=== PATIENT | female | born 1970 | race Caucasian/White ===

== ENCOUNTER 2019-05-29 08:07 | Inpatient (IN) | payer BC ==
--- NOTE | 2019-05-28 14:57 | HP ---
Admitting History and Physical - Primary Care Physician PCP: Star Lentz - Admission Chief Complaint: BRCA 1 positive History of Present Illness: 48 year old postmenapausal female BRCA 1positve with strong family H/O breast and ovarian cancer. Breast MRI 02/2019 showed 7 mm finding abbutting the left breast upper inner quadrant. Diagnostic mammogram and US showed no corrresponding findings. Due to the location over the implant the MRI core bx could not be performed and the density was felt to most likely be benign and a 6 month follow up advised. History Source: Patient Limitations to Obtaining History: No Limitations - Past Medical History Gastrointestinal: Yes: GERD ...LMP Comment: HYSTERECTOMY 02/19/19 Additional Past Medical History: toxic shock syndome 1985 - Past Surgical History Past Surgical History: Yes: Hysterectomy (Proph TA), Tonsillectomy (1994) Additional Past Surgical History: Bilateral saline implants 10 yrs ago - Smoking History Smoking history: Former smoker Have you smoked in the past 12 months: No If you are a former smoker, when did you quit?: 1994 - Alcohol/Substance Use Hx Alcohol Use: Yes (SOCIALLY 3-4 WKLY) Home Medications - Allergies Allergies/Adverse Reactions: Allergies Allergy/AdvReac Type Severity Reaction Status Date / Time codeine Allergy Intermediate Itching Verified 05/23/19 10:04 Penicillins Allergy Intermediate Rash Verified 05/23/19 10:04 - Home Medications Home Medications: Ambulatory Orders Bupropion HCl [Wellbutrin Xl -] 150 mg PO BID 05/23/19 Citalopram Hydrobromide [Citalopram HBr] 20 mg PO DAILY 05/23/19 LORazepam [Lorazepam] 0.5 mg PO Q6H PRN 05/23/19 Omeprazole 20 mg PO DAILY 05/23/19 traZODone HCL [Trazodone HCl] 50 mg PO HS 05/23/19 Family Medical History Family Hx Cancer: Father (Lung ca), Sister (BRCA=) Other Family History: pat uncle lymphoma//pat cousin ovarian ca BRCA1+. pat cousin small cell lung ca. mat aunt breast ca Physical Examination Constitutional: Yes: Well Nourished Breast(s): Yes: Other (C cup breast with obvious bilateral subpectoral saline implants placed through imframmary fold.no suspicious densities or adenopathy bilaterally) Problem List - Problems (1) BRCA gene mutation positive in female Code(s): Z15.01 - GENETIC SUSCEPTIBILITY TO MALIGNANT NEOPLASM OF BREAST; Z15.02 - GENETIC SUSCEPTIBILITY TO MALIGNANT NEOPLASM OF OVARY; Z15.09 - GENETIC SUSCEPTIBILITY TO OTHER MALIGNANT NEOPLASM Assessment/Plan Bilateral total mastectomies retroareolar biopsies reconstruction
[2019-05-29] MEDS ORDERED: BUPIVACAINE LIPOSOME/PF (EXPAREL) 266 MG/20 ML VIAL ONE (08:51)
[2019-05-29] MEDS ORDERED: SODIUM CHLORIDE 0.9% P/F 10 ML VIAL IJ ONE (08:51)
[2019-05-29] MEDS ORDERED: MIDAZOLAM HCL 2 MG/2 ML SINGLE DOSE VIAL ONE (09:39)
[2019-05-29] MEDS ORDERED: SCOPOLAMINE HYDROBROMIDE 1 PATCH PATCH.TD72 ONE (09:40)
[2019-05-29] MEDS ORDERED: ONDANSETRON 4 MG/2 ML VIAL IVPUSH PRN (09:42)
[2019-05-29] MEDS ORDERED: ACETAMINOPHEN 325 MG TABLET (FP) PO PRN (09:42)
[2019-05-29] MEDS ORDERED: diazePAM 5 MG TABLET PO PRN ×3 (09:45→14:14)
[2019-05-29] MEDS ORDERED: ROCURONIUM BROMIDE 50 MG/5 ML SYRINGE ONE ×2 (09:53→10:37)
[2019-05-29] MEDS ORDERED: VANCOMYCIN 1,000 MG VIAL (RESTRICTED TO ID ONLY) ONE (10:00)
[2019-05-29] MEDS ORDERED: PATIENT'S OWN MEDICATION (NON-FORMULARY) (Omeprazole [Omeprazole] 20 MG) PO SCH (10:00)
[2019-05-29] MEDS ORDERED: ceFAZolin SODIUM 1 GM VIAL ONE (10:01)
[2019-05-29] MEDS ORDERED: PROPOFOL 20 ML ONE ×2 (10:12)
[2019-05-29] MEDS ORDERED: DEXAMETHASONE SOD PHOSPHATE 4 MG/1 ML VIAL ONE (10:18)
[2019-05-29] MEDS ORDERED: HYDROmorphone HCL/PF 1 MG/ML AMP ONE (10:33)
[2019-05-29] MEDS ORDERED: fentaNYL CITRATE 250 MCG/5 ML VIAL ONE (10:38)
[2019-05-29] MEDS ORDERED: NEOSTIGMINE METHYLSULFATE 0.5 MG/ML - 10 ML MDV ONE (12:36)
[2019-05-29] MEDS ORDERED: GLYCOPYRROLATE 0.2 MG/1 ML VIAL ONE (12:36)
[2019-05-29] MEDS ORDERED: ONDANSETRON 4 MG/2 ML VIAL ONE ×2 (12:36→13:10)
--- NOTE | 2019-05-29 13:41 | SURG ---
Surgery Director Of Early Childhood Note Director Of Early Childhood: Minerva Brewer PA-C Date of Service: 05/29/19 Diagnosis: chest wall deformity s/p bilateral prophylaxtic mastectomy Procedure: Bilateral breast reconstruction with implants and dermal matrix I was present for the entirety of the operative procedure. For further detail, please refer to operative report. Visit type - Case Type Case Type: Scheduled - Emergency Emergency Visit: No - New patient This patient is new to me today: Yes Date on this admission: 05/29/19
--- NOTE | 2019-05-29 13:45 | OP ---
Operative Note - Note: Operative Date: 05/29/19 Pre-Operative Diagnosis: chest wall deformity s/p bilateral prophylactic mastetcomies Operation: bilateral breast reconstruction with implants and dermal matrix Post-Operative Diagnosis: Same as Pre-op Surgeon: Carlos Rasmussen Library Media Specialist: Minerva Brewer Anesthesiologist/ASSISTANT COMMUNITY MANAGER: Cristopher Saeed Anesthesia: General, Local Estimated Blood Loss (mls): 100 Fluid Volume Replaced (mls): 900 Operative Report Dictated: Yes
[2019-05-29] MEDS ORDERED: ACETAMINOPHEN 325 MG TABLET (FP) ONE (14:23)
[2019-05-29] MEDS ORDERED: oxyCODONE HCL 5 MG TABLET ONE (14:23)
[2019-05-29] MEDS: oxyCODONE HCL 5 MG TABLET PO PRN ×4 (14:28→21:24)
[2019-05-29] MEDS: DEXTROSE 5%-0.45% SALINE 1,000 ML IV SCH (15:20)
[2019-05-29] MEDS: CEFAZOLIN 1 GM/D5W 1 GM/50 ML BAG IVPB SCH ×2 (15:20→21:25)
[2019-05-29] MEDS: LACTATED RINGERS SOLUTION 1,000 ML IV SCH (15:21)
[2019-05-29] MEDS: diazePAM 5 MG TABLET PO PRN (16:29)
--- NOTE | 2019-05-29 17:28 | OP ---
DATE OF OPERATION: 05/29/2019 SURGEON: Licha Rasmussen MD. COMPLIANCE QUALITY PERFORMANCE ANALYST: ROSALINA Fan. This is a combined dictation with Dr. Licha Lentz for bilateral mastectomy with implant and acellular dermal matrix reconstruction. The patient had bilateral reconstruction which will be dictated under a separate cover by Dr. Lentz, and the reconstructive procedure as above. PREOPERATIVE DIAGNOSES: 1. Bilateral acquired chest wall deformity status post bilateral mastectomy. 2. Personal history of genetic carcinoma. 3. Absent bilateral breasts. POSTOPERATIVE DIAGNOSES: 1. Bilateral acquired chest wall deformity status post bilateral mastectomy. 2. Personal history of genetic carcinoma. 3. Absent bilateral breasts. OPERATIVE PROCEDURE: 1. Right breast immediate reconstruction utilizing immediate insertion of silicone breast implant, AlloDerm reconstruction and mesh placement. 2. Left breast immediate reconstruction utilizing immediate insertion of silicone breast implant, AlloDerm reconstruction and mesh placement. 3. Intravenous injection of indocyanine green dye and intraoperative diagnostic evaluation of noncoronary intraoperative fluorescein vascular angiography x2 as well as interpretation of angiogram intraoperatively. The right breast tissue removed was 354 g of tissue. Left breast tissue removed was 392 g of tissue. The patient had Sientra smooth round high profile style 107, 440-mL implants placed bilaterally, and she had Cortiva large sheaths of AlloDerm placed bilaterally for the reconstruction. She also had the SPY intraoperative angiogram, which showed good blood flow to the nipple areolar complexes. OPERATIVE INDICATION: Patient is a 48-year-old female who was brought to the operating room by Dr. Licha Lentz for bilateral mastectomy for significant genetic history of breast carcinoma. The patient elected to undergo bilateral mastectomy with the above reconstructive procedure in a prepectoral position. The risks and benefits of surgical versus nonsurgical alternatives as well as material complications were described to the patient on multiple occasions preoperatively. She was marked in the standing position preoperatively in the holding area and all questions were asked and answered. OPERATIVE PROCEDURE IN DETAIL: The patient was taken to the operating room by Dr. Lentz where she was placed supine on the operating room table. Both arms were extended and padded. Venodyne boots were placed and all areas were protected and padded. Dr. Lentz will dictate his portion of the operation under separate cover. At this point Dr. Lentz performed bilateral mastectomy with an inframammary incision on both right and left breasts, which will be dictated separately. Upon completion of the mastectomies the wounds were copiously irrigated and hemostasis was meticulously obtained throughout the pocket and both chest gill. On the back table as the mastectomies were being performed I created reconstructive procedures by utilizing a full coverage reconstructive implant. A Sientra smooth round high profile style 107, 440-mL implant was used for the reconstruction. ProGrip mesh was placed in a circular fashion cutting out the mesh slightly larger than the backside of the implant. The gripping portion of the mesh was placed away from the implant in order to adhere to the pectoralis muscle. Cortiva large sheaths of AlloDerm were selected to cover the anterior surface of the entire implant and then was sutured down to the underlying mesh over the implant and suturing it on the backside. Multiple 2-0 Vicryl sutures were placed around the circumference of the implant creating an entire enclosure for the new implant device. Triple-antibiotic solution and Betadine were used to cover this device and the AlloDerm was soaked in triple-antibiotic solution x3. Both devices were created on the back table and ready for reconstruction. The exact same procedure was carried out symmetrically on the opposite left side in order to create the same device with the same size Sientra 107, 505 mL high-profile implant. Once the mastectomies were completed, the left breast was attended to first. The device was transferred to the left chest wall and the rim which extended beyond the implant itself was then attached to the chest wall using 0 V-Loc suture in a running fashion from the medial to the lateral side to tack the mesh down to the pectoralis muscle at the inframammary fold and laterally and medially in order to prevent motion of the device. Good shape and contour were seen in the shape of the breast at this point. Skin flaps showed viability. The Spy intraoperative angiogram was performed at this point by injecting 4 mL of indocyanine green dye into the intravascular system and then an intraoperative angiogram was used to show adequate blood flow to the skin and nipple-areolar complex on both chest gill. This was repeated before placement of the implant and then after the implant was placed. Both showed good blood flow. The Spy imaging system was brought into the field. The skin flowed to the right and left breasts and the nipple-areolar complex, and the entire skin flaps were evaluated and seen to be viable with good blood flow. The patient had the 2nd implant placed into the right chest wall in the exact same fashion, suturing a 0 V-Loc suture in running fashion from medial to lateral, attaching the posterior aspect of the mesh down to the chest wall. Once the implants were verified in good position and shape and contour were seen the skin flaps were draped over the implant and down into their new anatomic position. The skin edges were trimmed. A 15 Ramon drain was threaded through a separate stab wound around the entire circumference of the implant itself and sutured into position. Again, copious irrigation and hemostasis were obtained and then attention was turned to the closure. Using 3-0 PDS suture on the deep dermis and tissue the deep layer was repaired with interrupted sutures and then a 4-0 Biosyn suture was used in a subcuticular fashion to repair the skin. Biopatch and Dermabond with Steri-Strips were placed over the drain and suture line. A compression dressing with fluff dressings, ABD gauze and a Surgi-Bra were placed. She was then awakened, extubated and transferred to the recovery room in satisfactory condition and showed excellent contour and excellent result at this point. LICHA RASMUSSEN M.D. [id number]
[2019-05-29] MEDS: diphenhydrAMINE HCL 25 MG CAPSULE (FP) PO PRN (21:24)
[2019-05-29] MEDS ORDERED: traZODone HCL 50 MG TABLET (FP) PO SCH (22:00)
[2019-05-29] MEDS: traZODone HCL 50 MG TABLET (FP) PO SCH (22:33)
[2019-05-29] MEDS: ACETAMINOPHEN 325 MG TABLET (FP) PO PRN (22:33)
--- NOTE | 2019-05-29 23:01 | OP ---
DATE OF OPERATION: 05/29/2019 PREOPERATIVE DIAGNOSIS: Genetic susceptibility for breast cancer, BRCA1 positive. POSTOPERATIVE DIAGNOSIS: Genetic susceptibility for breast cancer, BRCA1 positive. PROCEDURE: Bilateral total nipple-sparing mastectomies from an inframammary approach with removal of previous saline augmentation implants and now direct implant reconstruction with acellular dermal matrix. PRIMARY SURGEON: Licha Garcia MD. RIVET SPINNER: DANIELLE Moya. Primary surgeon for the bilateral direct implant reconstruction is Licha Rasmussen MD. COMPLICATIONS: There were no complications. DESCRIPTION OF PROCEDURE: Briefly, the patient is a 48-year-old G3, P2 postmenopausal white female of [place], [place], [place] descent. She has a strong family history with her paternal cousin, from ovarian cancer at age 35 and tested BRCA1 positive. Her father from lung cancer and maternal aunt had breast cancer in her 60s. The patient had a prophylactic PATRICIA/BSO in February 2019 due to the gene positive mutation. Both the patient and her sister tested BRCA1 positive. She has a history of undergoing bilateral subpectoral saline augmentation implant surgery in 2010. The patient recently had an MRI showing a benign-appearing finding over the upper inner aspect of the left breast, which was felt too difficult to biopsy, and close followup was recommended. She decided to undergo bilateral mastectomies for risk reduction. The patient was seen in consultation prior to the surgery, understood our technique and procedure as well as all risks, complications to the procedure. She understood that we do retroareolar biopsies at the time of surgeries and if these showed cancer, we would remove the nipples. Otherwise, we would save the nipples, and there is some theoretical risk of leaving some tissue in that region. She understood the lack of any evidence showing sentinel lymph node biopsies. She was seen by Dr. Rasmussen, our plastic surgeon, and decided undergoing bilateral silicone direct implant reconstructions with acellular dermal matrix. The patient is brought in for the procedure on May 29, 2019. In the holding area, site verification was made and informed consent as obtained. She was marked preoperatively by the plastic surgeon. She was brought to the operating room and laid on the OR table in supine position. Venodynes were placed on the lower extremities prior to induction. She received 2 g Ancef prior to incision. Both breasts were sterilely prepped and draped in the usual fashion, and she was given general endotracheal anesthesia. Bilateral inframammary incisions were marked out symmetric bilaterally about 9 cm in length. The left mastectomy was first performed. Timeout was performed prior to incision. Incision was made and the skin edges were everted, and the breast was retracted inferiorly using Dell clamps. The skin flap was raised using the PEEK radiofrequency device superiorly to the level of the clavicle, medially to the level of the sternum, laterally to the level of the platysmas, and inferiorly below the level of the inframammary fold. The implant was taken out about mcfp through the raising of the skin flap. At this point, the breast was taken out off the pectoralis major muscle using electrocautery from inferomedial to superolateral and part of the inferior aspect of the capsule was removed with the breast tissue. The breast tissue was oriented with a long lateral short superior suture and weighed to allow for appropriate cosmetic result. Skin edges were trimmed to allow removal of all visible breast tissue. Hemostasis was achieved. A retroareolar biopsy was taken underneath the left nipple areolar complex and sent for frozen section and came back negative, so the left nipple was spared. The wound was copiously irrigated with warm, sterile saline. At this point, the right breast was approached. Again, similar mastectomy was performed on the right side through a 9-cm inframammary incision, with the skin edges being everted. The breast was retracted inferiorly, and the skin flap was raised using the PEEK radiofrequency device superiorly to the level of the clavicle, medially to the level of the sternum, laterally to the level of the platysmas, and inferiorly below the level of the inframammary fold. The breast was taken out off the pectoralis major muscle after the implant was removed using electrocautery from inferomedial to superolateral, completely removed intact. It was oriented with a long lateral, short superior suture and weighed to allow for appropriate cosmetic result. Hemostasis was achieved and skin flaps were inspected for removal of all gross visible breast tissue. A retroareolar biopsy was taken underneath the right nipple areolar complex and sent for frozen section, came back negative, so the right nipple was spared. The wound was copiously irrigated with warm, sterile saline. At this point, Dr. Rasmussen became the primary surgeon, performed bilateral silicone subpectoral direct implant reconstruction using Cortiva acellular dermal matrix sutured into the inferolateral aspects of both pectoralis major muscles. Two Ramon drains will be placed around each implant, both through separate stab incisions on the lateral skin flaps and secured in place using 3-0 nylon suture. All sponge, needle counts are correct after the mastectomy, and estimated blood loss is about 100 mL. She was hemodynamically stable. Exparel was injected into the chest gill bilaterally for postoperative pain control prior to closure. All wounds will be closed by plastic surgery using interrupted 3-0 deep dermal PDS suture and a running 4-0 subcuticular PDS suture. Mastisol, Steri-Strips will be applied over the wounds, and she will be placed in a surgical bra postoperatively. The patient will be extubated and recovered in the post anesthesia care unit. She will be admitted postoperatively for pain and wound management. LICHA GARCIA M.D. [id number]
[2019-05-30] MEDS: oxyCODONE HCL 5 MG TABLET PO PRN ×3 (01:24→05:44)
[2019-05-30] MEDS: ACETAMINOPHEN 325 MG TABLET (FP) PO PRN ×4 (01:34→15:46)
[2019-05-30] MEDS: CEFAZOLIN 1 GM/D5W 1 GM/50 ML BAG IVPB SCH ×4 (03:20→21:40)
[2019-05-30] MEDS: diphenhydrAMINE HCL 25 MG CAPSULE (FP) PO PRN ×3 (03:20→16:50)
[2019-05-30 07:59] LABS: HEMATOCRIT 33.3 % (32.4-45.2); HEMOGLOBIN 11.3 GM/dl (10.7-15.3); MCH 32.1 pg (25.7-33.7); MEAN CELL VOLUME 94.4 fl (80-96); MEAN PLT VOLUME 8.1 fl (7.5-11.1); PLATELET COUNT 248 K/MM3 (134-434); RBC 3.52 M/mm3 (3.60-5.2); RDW 11.7 % (11.6-15.6); WHITE BLOOD COUNT 9.2 K/mm3 (4.0-10.8)
[2019-05-30] MEDS: diazePAM 5 MG TABLET PO PRN ×2 (09:23→21:41)
[2019-05-30] MEDS: PANTOPRAZOLE 20 MG TABLET (FP) PO SCH (09:28)
[2019-05-30] MEDS: DEXTROSE 5%-0.45% SALINE 1,000 ML IV SCH (09:28)
--- NOTE | 2019-05-30 09:49 | PN ---
Progress Note, Physician Chief Complaint: BRCA positive S/P bilateral total mastectomies with implant and dermal matrix reconstruction History of Present Illness: Patient is eating no nausea or vomiting ,oxycodone caused itchiness and she was given a benadryl for rash and pruritis, valium with tylenol was also given for pain - Current Medication List Current Medications: Active Medications Acetaminophen (Tylenol -) 650 mg PO Q4H PRN PRN Reason: MILD PAIN Last Admin: 05/30/19 09:23 Dose: 650 mg Diazepam (Valium -) 5 mg PO Q12H PRN PRN Reason: MUSCLE SPASMS Last Admin: 05/30/19 09:23 Dose: 5 mg Diphenhydramine HCl (Benadryl -) 25 mg PO Q6H PRN PRN Reason: FOR ITCHING Last Admin: 05/30/19 09:23 Dose: 25 mg Cefazolin Sodium (Ancef 1 Gm Premixed Ivpb -) 1 gm in 50 mls @ 100 mls/hr IVPB Q6H-IV RODY Stop: 06/05/19 14:59 Last Admin: 05/30/19 09:28 Dose: 100 mls/hr Dextrose/Sodium Chloride (D5-1/2ns -) 1,000 mls @ 100 mls/hr IV ASDIR RODY Last Admin: 05/30/19 09:28 Dose: 100 mls/hr Lactated Ringer's (Lactated Ringers Solution) 1,000 mls @ 75 mls/hr IV ASDIR RODY Last Admin: 05/29/19 15:21 Dose: Not Given Ondansetron HCl (Zofran Injection) 4 mg IVPUSH Q6H PRN PRN Reason: NAUSEA AND/OR VOMITING Pantoprazole Sodium (Protonix -) 20 mg PO DAILY [facility] Last Admin: 05/30/19 09:28 Dose: Not Given Trazodone HCl (Desyrel -) 50 mg PO HS [facility] Last Admin: 05/29/19 22:33 Dose: 50 mg - Objective Vital Signs: Vital Signs Temperature 97.3 F L 05/30/19 09:32 Pulse Rate 86 05/30/19 09:32 Respiratory Rate 20 05/30/19 09:32 Blood Pressure 100/51 L 05/30/19 09:32 O2 Sat by Pulse Oximetry (%) 97 05/30/19 06:00 Constitutional: Yes: Other (puritic rash due to oxycodone) Breast(s): Yes: Other (Bilateral flaps viable, incision intact ,bessie drains functioning well,serosanguinous, mild puritic rash due to oxycodone) Labs: CBC, BMP 05/30/19 07:33 Problem List - Problems (1) BRCA gene mutation positive in female Code(s): Z15.01 - GENETIC SUSCEPTIBILITY TO MALIGNANT NEOPLASM OF BREAST; Z15.02 - GENETIC SUSCEPTIBILITY TO MALIGNANT NEOPLASM OF OVARY; Z15.09 - GENETIC SUSCEPTIBILITY TO OTHER MALIGNANT NEOPLASM Assessment/Plan IV antibiotics benadryl prn puritic rash DC oxycodone due to allergy Valium with tylenol prn SCD ambulation with assistance
--- NOTE | 2019-05-30 13:06 | PN ---
Progress Note (short form) - Note Progress Note: ANESTHESIA POSTOP 48 yo female POD #1 s/p BL mastectomy, GETA Patient sitting in bed. Tolerating PO. Complains of pruritis related to PO pain meds. No n/v. VSS, Afebrile Continue current care. Encouraged IS. Will add hydromorphone IV to regiment.
[2019-05-30] MEDS: HYDROmorphone HCl 2 MG/ML VIAL IVPUSH PRN ×2 (14:01→18:33)
[2019-05-30] MEDS: LACTATED RINGERS SOLUTION 1,000 ML IV SCH (14:14)
[2019-05-30] MEDS: traZODone HCL 50 MG TABLET (FP) PO SCH (21:40)
[2019-05-31] MEDS: diazePAM 5 MG TABLET PO PRN ×2 (02:12→12:13)
[2019-05-31] MEDS ORDERED: diazePAM 5 MG TABLET PO ONE (03:15)
[2019-05-31] MEDS: CEFAZOLIN 1 GM/D5W 1 GM/50 ML BAG IVPB SCH ×2 (03:32→09:04)
[2019-05-31] MEDS: HYDROmorphone HCl 2 MG/ML VIAL IVPUSH PRN (06:03)
[2019-05-31] MEDS: PANTOPRAZOLE 20 MG TABLET (FP) PO SCH (09:04)
[2019-05-31] MEDS: ACETAMINOPHEN 325 MG TABLET (FP) PO PRN (09:05)
--- NOTE | 2019-05-31 09:41 | PN ---
Progress Note (short form) - Note Progress Note: Doing well Ready for DC Meds given via e-prescribe
[2019-05-31] MEDS ORDERED: CITALOPRAM HYDROBROMIDE 20 MG TABLET (FP) PO SCH (10:00)
[2019-05-31 13:24] VITALS: BP 92/47; PULSE 76; TEMP 97.8
--- NOTE | 2019-06-02 12:24 | PATH ---
Surgical Pathology Report Patient Name: CARRINGTON WALSH Med. Rec. #: [id number] /Age/Gender: 1970 (Age: 48) / F Account: [id number] Location: [facility] MED-SURG Taken: 05/29/2019 Received: 05/29/2019 Reported: 06/02/2019 Physicians: Star Lentz M.D. Specimen(s) Received A: RIGHT RETROAREOLAR BIOPSY (FS) B: LEFT RETROARELAR BIOPSY (FS) C: RIGHT MASTECTOMY(LONG-LATERAL/SHORT SUPERIOR) D: LEFT MASTECTOMY(LONG-LATERAL/SHORT-SUPERIOR) E: RIGHT BREAST IMPLANT F: LEFT BREAST IMPLANT Clinical History BRCA1 positive Intraoperative Consult Diagnosis A. Right retroareolar biopsy, frozen section: Negative for malignancy. B. Left retroareolar biopsy, frozen section: Negative for malignancy. Vianey Valentin 05/29/19 Final Diagnosis A. RIGHT BREAST, RETROAREOLAR BIOPSY: BENIGN BREAST TISSUE. B. LEFT BREAST, RETROAREOLAR BIOPSY: BENIGN BREAST TISSUE. C. RIGHT BREAST, NIPPLE SPARING MASTECTOMY: SMALL (3 MM) FIBROADENOMA ARISING IN A BACKGROUND OF BENIGN BREAST TISSUE WITH FIBROCYSTIC CHANGES INCLUDING STROMAL FIBROSIS, DUCTAL DILATATION, AND CYSTIC APOCRINE METAPLASIA. CHANGES CONSISTENT WITH BREAST IMPLANT CAPSULE PRESENT. D. LEFT BREAST, NIPPLE SPARING MASTECTOMY: SMALL (2 MM) FIBROADENOMA ARISING IN A BACKGROUND OF BENIGN BREAST TISSUE WITH FIBROCYSTIC CHANGES INCLUDING USUAL DUCTAL HYPERPLASIA, STROMAL FIBROSIS, DUCTAL DILATATION AND CYSTIC APOCRINE METAPLASIA. CHANGES CONSISTENT WITH BREAST IMPLANT CAPSULE PRESENT. BENIGN SKELETAL PRESENT. E. COLLISION WORKER, RIGHT BREAST, REMOVAL: BREAST IMPLANT (GROSS ONLY). F. COLLISION WORKER, LEFT BREAST, REMOVAL: BREAST IMPLANT (GROSS ONLY). Electronically Signed Bayron Jeffries M.D. Gross Description A. Received fresh for frozen section evaluation, labeled "right retroareolar biopsy" is a 1 x 0.4 x 0.2 cm portion of pink-alston soft tissue. Frozen section is performed on the specimen. The frozen section residue is entirely submitted in one cassette. B. Received fresh for frozen section evaluation, labeled "left retroareolar biopsy" is a 1.2 x 0.4 x 0.2 cm portion of pink-alston soft tissue. Frozen section is performed on the specimen. The frozen section residue is entirely submitted in one cassette. C. Received in formalin, labeled "right mastectomy," is a 74 gram, 13.5 x 9.5 x 1.2 cm. right mastectomy specimen with a short suture marking the superior aspect and a long suture marking the lateral aspect of the specimen, per the surgeon. There is no skin or nipple present. The deep margin displays a focus of exposed fibrous capsule. The deep margin is inked black and the anterior soft tissue margin is inked blue. The specimen is serially sectioned from lateral to medial. Sectioning reveals abundant dense, white fibrous tissue. Dairy Laboratory Technician sections are submitted in 14 cassettes as follows: 1-3-upper outer quadrant; 4-6-lower outer quadrant; 7-9-upper inner quadrant; 10-12-lower inner quadrant; 13-additional anterior soft tissue margin; 14-additional deep margin. Time to formalin fixation: 40 minutes Total formalin fixation time: Approximately 30 hours. D. Received in formalin, labeled "left mastectomy," is a 108 gram, 13.5 x 12.5 x 1.4 cm. left mastectomy specimen with a short suture marking the superior aspect and a long suture marking the lateral aspect of the specimen, per the surgeon. There is no skin or nipple present. The deep margin displays a focus of exposed fibrous capsule. The deep margin is inked black and the anterior soft tissue margin is inked blue. The specimen is serially sectioned from medial to lateral. Sectioning reveals abundant dense, white fibrous tissue. Dairy Laboratory Technician sections are submitted in 14 cassettes as follows: 1-3-upper outer quadrant; 4-6-lower outer quadrant; 7-9-upper inner quadrant; 10-12-lower inner quadrant; 13-additional anterior soft tissue margin; 14-additional deep margin. Time to formalin fixation: 15 minutes Total formalin fixation time: Approximately 30 hours. E. Received fresh labeled "right breast implant," is a 12 cm in diameter x 2.5 cm in depth clear, rubbery, intact breast implant. No soft tissue is present. No sections are submitted, gross only. F. Received fresh labeled "left breast implant," is a 12 cm in diameter x 2.5 cm in depth clear, rubbery, intact breast implant. No soft tissue is present. No sections are submitted, gross only. AE/05/29/2019 ebram/05/29/2019
== END 2019-05-31 13:20 | disposition home or self-care (01) | DRG 585 ==
LOC: FM/S 08:07
PROVIDERS: ADMIT Surgery Surgical Oncology; ATTEND Surgery Surgical Oncology
PROC: 4A1GXSH Monitoring of Skin and Breast Vascular Perfusion using Indocyanine Green Dye, External Approach (ICD-10-PCS; 2019-05-29)
PROC: 0HTV0ZZ Resection of Bilateral Breast, Open Approach (ICD-10-PCS; principal; 2019-05-29 09:30)
PROC: 0HRV0JZ Replacement of Bilateral Breast with Synthetic Substitute, Open Approach (ICD-10-PCS; 2019-05-29 09:30)
DX: Z40.01 Encounter for prophylactic removal of breast (principal); K21.9 Gastro-esophageal reflux disease without esophagitis; Z80.3 Family history of malignant neoplasm of breast; Z80.41 Family history of malignant neoplasm of ovary; Z15.01 Genetic susceptibility to malignant neoplasm of breast; M95.4 Acquired deformity of chest and rib
CPT/HCPCS: 36415; 85027; 87389; 88300-TC; 88305-TC; 88307-TC; 88331-TC; 94760